=== PATIENT | female | born 1935 | race Caucasian/White ===

== ENCOUNTER 2023-07-10 15:29 | Emergency (ER) | payer MEDICARE, SELFPAY ==
[2023-07-10 15:33] VITALS: BMI 29.2
[2023-07-10 15:35] VITALS: BP 158/71
[2023-07-10 15:39] VITALS: BP 148/108
--- NOTE | 2023-07-10 15:43 | ED.GENMED ---
History of Present Illness
<Irene Britton PA-C - Last Filed: 07/10/23 19:08>
General
Chief Complaint: Musculo-Skeletal Complaint
Source: patient
Exam Limitations: none
Time Seen by Provider: 07/10/23 15:35
Nursing documentation reviewed up to this point in time: agreed with
Travel History
Have you had any contact with someone who has COVID-19?: No
Do you have any symptoms of coronavirus? Fever > 100 degrees, chills, cough, shortness of breath, sore throat, loss of taste or smell, muscle aches, or headache?: No
History of Present Illness
History of Present Illness:
This is a 88-year-old female with past medical history of CAD, hypertension, hyperlipidemia, hypothyroidism presenting to the emergency department today with left rib pain, left cheek pain, and neck pain following a fall today. Patient states that
she was leaving her prayer group when she tripped on the curb exam exiting the building and fell onto her left side. She denies abdominal pain, shoulder pain, dizziness, lightheadedness, syncopal episodes, headache, nausea, vomiting, midline chest
pain, shortness of breath. She states that her rib pain is significantly worse with any movement and when she breathes. She currently takes aspirin once daily but does not take any other blood thinning medications.
Past History
<Irene Britton PA-C - Last Filed: 07/10/23 19:08>
Past History
ED Past Medical History: HTN and Hypercholesterolemia
Social History
Tobacco: Non-smoker
Alcohol: Daily (2 glasses of wine each night which she had last night)
Personal:
Living: with family
Review of Systems
<Irene Britton PA-C - Last Filed: 07/10/23 19:08>
Review of Systems
All Other Systems: ROS reviewed and negative except as documented in HPI and ROS
Phy Exam
<Irene Britton PA-C - Last Filed: 07/10/23 19:08>
Physical Exam
Physical Exam:
General: Patient is well-appearing and in no acute distress
Skin: There is an abrasion the patient's left cheek. No other rashes or lesions, no areas of ecchymosis.
HEENT: Head--normocephalic, no palpable hematomas. Ears--no hemotympanum. PERRLA. EOMs intact. Eyes--left conjunctival injection.
Cardiac: Regular rate and rhythm, there is some significant tenderness palpation of the left lower external chest wall. No crepitus, no areas of ecchymosis.
Pulm: normal respiratory effort, equal lung sounds on both sides, no wheezes/rales/rhonchi
Abdomen: no abdominal tenderness to palpation
Musculoskeletal: Patient is seen spontaneously moving cervical spine, no bony tenderness palpation of the cervical spine. Some upper trapezius tenderness to palpation noted.
Neuro: AAO x3. CN II-XII intact.
Course
<Irene Britton PA-C - Last Filed: 07/10/23 19:08>
Orders/Labs/Results
Orders:
Orders
07/10/23 15:41
CT Cervical Spine W/o Iv Contr Urgent
Comment:
Reason For Exam: trauma, neck pain
CT Chest W/o Iv Contrast Urgent
Comment:
Reason For Exam: trauma, left rib pain
CT Facial Bones W/o Iv Contras Urgent
Comment:
Reason For Exam: left cheek pain following fall
CT Head W/o Iv Contrast Urgent
Comment:
Reason For Exam: trauma, fall
Oxycodone/Acetaminophen [Percocet 5/325] 1 tablet PO NOW STA
07/10/23 16:55
HYDROmorphone [Dilaudid] 0.5 mg IM NOW STA
Vital Signs
Initial and Last Documented VS:
Initial Vital Signs
Temp Pulse Resp BP Pulse Ox
98.1 F 75 16 158/71 99
07/10/23 15:35 07/10/23 15:35 07/10/23 15:35 07/10/23 15:35 07/10/23 15:35
Last Documented Vital Signs
Temp Pulse Resp BP Pulse Ox
98.1 F 63 19 148/67 97
07/10/23 15:35 07/10/23 17:00 07/10/23 17:00 07/10/23 17:00 07/10/23 17:00
<Jayme Shields, DO - Last Filed: 07/10/23 15:53>
Orders/Labs/Results
Orders:
Orders
07/10/23 15:41
CT Cervical Spine W/o Iv Contr Urgent
Comment:
Reason For Exam: trauma, neck pain
CT Chest W/o Iv Contrast Urgent
Comment:
Reason For Exam: trauma, left rib pain
CT Facial Bones W/o Iv Contras Urgent
Comment:
Reason For Exam: left cheek pain following fall
CT Head W/o Iv Contrast Urgent
Comment:
Reason For Exam: trauma, fall
Oxycodone/Acetaminophen [Percocet 5/325] 1 tablet PO NOW STA
07/10/23 16:55
HYDROmorphone [Dilaudid] 0.5 mg IM NOW STA
Vital Signs
Initial and Last Documented VS:
Initial Vital Signs
Temp Pulse Resp BP Pulse Ox
98.1 F 75 16 158/71 99
07/10/23 15:35 07/10/23 15:35 07/10/23 15:35 07/10/23 15:35 07/10/23 15:35
Last Documented Vital Signs
Temp Pulse Resp BP Pulse Ox
98.1 F 63 19 148/67 97
07/10/23 15:35 07/10/23 17:00 07/10/23 17:00 07/10/23 17:00 07/10/23 17:00
<Irene Britton PA-C - Last Filed: 07/10/23 19:08>
MDM/Problems Addressed
Differential Diagnosis Includes:
Differentials include left rib fracture, hemothorax, left zygomatic fracture
MDM/Problems Addressed:
rib pain
neck pain
cheek pain

Will start patient on 1 oral Percocet, and obtain CT imaging of the facial bones, neck, head, and chest
Chronic conditions affecting care: HTN and CAD
<CINDY Plummer Last Filed: 07/10/23 19:08>
*Pulse Oximetry
Patient hypoxic: no
*Critical Care Note
Total Time (30-74mins, 75-104mins- exclusive of procedures): Not Applicable
Data Reviewed
Review of Other/Old Records Reveals: Records (Reviewed hospital discharge summary from 07/25/2021)
Prescriptions/Medications Considered But Not Given:
N/A
Further Testing Considered But Not Given:
N/A
<CINDY Plummer Filed: 07/10/23 19:08>
Patient Management
Escalation/DeEscalation of care consider admission/obs:
This is a 88-year-old female who presents to the emergency department today following a fall after tripping on a curb. She currently admits to left cheek pain, left rib pain, and neck pain. On exam, she is significant tenderness palpation in the
left lower external chest wall her extraocular eye movements are intact, no hemotympanum. Her CT scans revealed an acute displaced left orbital floor fracture with maxillary sinusitis but no rib fractures, no acute intracranial pathology. While here
in the emergency department, her pain was controlled with one Percocet tablet and Dilaudid. I have provided patient with a few Percocet tablets to take at home for pain control as well as Augmentin. Patient is stable for discharge
<Irene Britton PA-C - Last Filed: 07/10/23 19:08>
Update Note
Update Note:
4:58 pm-- on reevaluation, patient does not have much relief with the percocet. Will give IM diluadid now
6:50 pm--I was not able to discuss antibiotic with patient prior to discharge. I called the contact number on file, patient's was here with her today. I called multiple times. I left a message regarding the instructions for the antibiotic.
ED Attending Note
<Irene Britton PA-C - Last Filed: 07/10/23 19:08>
-
Portions of this chart may have been created with voice recognition software.� Occasional wrong word or��sound alike� substitutions may have occurred due to the inherent limitations of voice recognition software.
<Jayme Shields DO - Last Filed: 07/10/23 15:53>
ED Attending Note
Patient seen and examined by attending physician: Yes
I performed the substantive portion of visit, reviewed & personally made and approve the management plan that is documented in note by myself or VETO.: Yes
ED Attending Note:
I have seen and evaluated the patient with a [id number] encounter. I have spoken to the advance practicer provider and involved in the medical history, the physical exam, medical decision making.
Evaluation and management service: agree unless noted differently below.
Results interpretation: agree unless noted differently below.
Focused HPI: 88-year-old female presenting with a trip and fall. She landed on the left side of her body. She complains of headache and left rib pain
Physical exam: Abrasion to left face. Mild tenderness to left rib. Lungs clear
Medical Decision Making: Will obtain CT head, facial bones, cervical spine and ribs
Discharge Plan
Departure
Patient Disposition: Home (Routine Discharge)
Date of Disposition: 07/10/23
Time of Disposition: 18:22
Patient with high blood pressure during this ER visit?: Yes
Condition: Good
Discharge Problem:
Orbital floor fracture
Instructions: Facial Fracture (DC)
Prescriptions:
New
oxycodone-acetaminophen [Percocet] 2.5-325 mg tablet
1 tab PO Q4H PRN (Reason: Pain) Qty: 10 0RF
amoxicillin-pot clavulanate [Augmentin] 500-125 mg tablet
1 tab PO Q12H 7 Days Qty: 14 0RF
No Action
levothyroxine 25 MCG tablet
25 mcg PO DAILY
erythromycin with ethanol 30 GM gel
1 applic topical DAILYPRN PRN (Reason: flares)
atorvastatin 80 MG tablet
80 mg PO HS
metoprolol tartrate 50 MG tablet
50 mg PO BID
escitalopram oxalate 10 MG tablet
10 mg PO DAILY
ezetimibe 10 MG tablet
10 mg PO HS
hydrochlorothiazide 12.5 MG tablet
12.5 mg PO DAILY
cholecalciferol (vitamin D3) 2,000 UNITS tablet
2,000 units PO DAILY
arlnywqgoe-bhaerddkbkjkw-xzum 1 EACH tablet
1 ea PO Q4HPRN PRN (Reason: migraines)
aspirin 325 MG tablet,delayed release (DR/EC)
325 mg PO DAILY
Referrals:
Savanah Herrera MD [Family Provider] -
Lalita Cesar DMD [Active] - Call in 1-3 days for appt
Activity Restrictions/Additional Instructions:
We have given you a referral for an oral/maxillofacial surgeon, Dr. Lalita Cesar. Please call tomorrow for an appointment.
We have sent a medication called Percocet to your pharmacy. You can take 1 tablet every 4 hours as needed for pain. This medication contains acetaminophen (Tylenol) so please do not take Tylenol while taking this medication.
Please return to the emergency department should you have worsening of your pain, develop the inability to see, have trouble with your vision, have shortness of breath, chest pain, or other concerning signs or symptoms.
Please follow up with your primary care provider.
Interventions
Interventions:
*Risk Screen - Suicide Last Done: 07/10/23 15:36
*General Assessment Last Done: 07/10/23 15:36
*Neglect/Abuse Screening Last Done: 07/10/23 15:36
ED- Fall Risk Assessment Last Done: 07/10/23 18:57
*ED COVID-19 Vaccine History Last Done: 07/10/23 15:36
*Nursing Disposition Last Done: 07/10/23 18:57
ED-Musculoskeletal Assessment Last Done: 07/10/23 15:57
Discharge Date and Time
Discharge Date/Time: 07/10/23 18:59
[2023-07-10] MEDS: PERCOCET 5/325 1 TABLET PO (15:52)
[2023-07-10 16:00] VITALS: BP 151/68
[2023-07-10 17:00] VITALS: BP 148/67
[2023-07-10] MEDS: DILAUDID 0.5 MG IM (17:46)
== END 2023-07-10 18:59 | disposition home or self-care (01) ==
LOC: EMR 15:29
PROVIDERS: EMERGENCY PHYSICIAN Student in an Organized Health Care Education/Training Program; FAMILY PHYSICIAN Internal Medicine
DX: S02.32XA Fracture of orbital floor, left side, initial encounter for closed fracture (principal); S00.81XA Abrasion of other part of head, initial encounter; W10.1XXA Fall (on)(from) sidewalk curb, initial encounter; Y92.89 Other specified places as the place of occurrence of the external cause; R07.81 Pleurodynia; M54.2 Cervicalgia; J01.00 Acute maxillary sinusitis, unspecified; I10 Essential (primary) hypertension; I25.10 Atherosclerotic heart disease of native coronary artery without angina pectoris; E78.00 Pure hypercholesterolemia, unspecified; M19.90 Unspecified osteoarthritis, unspecified site; H40.9 Unspecified glaucoma; L94.0 Localized scleroderma [morphea]; G43.909 Migraine, unspecified, not intractable, without status migrainosus; F41.9 Anxiety disorder, unspecified; E03.9 Hypothyroidism, unspecified; Z79.82 Long term (current) use of aspirin; Z95.1 Presence of aortocoronary bypass graft; Z96.651 Presence of right artificial knee joint; Z87.891 Personal history of nicotine dependence; Z85.828 Personal history of other malignant neoplasm of skin; Z98.0 Intestinal bypass and anastomosis status; Z88.2 Allergy status to sulfonamides; Z91.041 Radiographic dye allergy status
CPT/HCPCS: 99285; 96372; 70450; 70486; 71250; 72125

== ENCOUNTER 2023-07-13 11:09 | Emergency (ER) | payer MEDICARE, SELFPAY ==
[2023-07-13 11:16] VITALS: BP 138/68; BMI 29.8
[2023-07-13 11:21] VITALS: BP 127/51
[2023-07-13 12:00] VITALS: BP 130/64
--- NOTE | 2023-07-13 12:29 | ED.GENMED ---
History of Present Illness
General
Chief Complaint: Generalized Pain
Source: patient
Exam Limitations: none
Time Seen by Provider: 07/13/23 12:28
Nursing documentation reviewed up to this point in time: agreed with
Travel History
Have you had any contact with someone who has COVID-19?: No
Do you have any symptoms of coronavirus? Fever > 100 degrees, chills, cough, shortness of breath, sore throat, loss of taste or smell, muscle aches, or headache?: No
History of Present Illness
History of Present Illness:
88-year-old female presents from home. History of migraines, CAD, CABG quadruple bypass 1998, HTN, HLD, diverticulitis, colon resection 2006, RAMANA, hypothyroid presents from home stating she has left rib pain, getting worse since fall 2 days ago
when she was evaluated here and had neg fractures on Chest CT. She fell tripping on steps at the [employer], dx here with left infraorbital fx,neg head CT. discharged with Percocet 2.5-325 x 10 tabs which she has been taking with not much relief . also
rx for Augmentin.
at bedside states he is having trouble taking care of her as if he tries to help her out of bed 'she screams.'
Pt does NOT want to go to rehab.
Pt denies headache, SOB, CP, Abd pain, feeling weak or dizzy. She states she is simply here due to the left rib pain. states she only has one Eucet (Oxycodone-Acetaminophen 2.5-325)
Past History
Past History
ED Past Medical History: CAD, HTN, Hypercholesterolemia, Hypothyroidism and Other (Diverticulitis)
Social History
Tobacco: Former smoker
Alcohol: Daily (2 glasses of wine each night which she had last night)
Personal:
Living: with family
Review of Systems
Review of Systems
Allergies reviewed?: Yes
All Other Systems: ROS reviewed and negative except as documented in HPI and ROS
Constitutional: Denies fever
Respiratory: Denies cough, hemoptysis or trouble breathing
Cardiac: Denies chest pain, diaphoresis, palpitations or syncope
ABD/GI: Denies abdominal pain, nausea, vomiting, diarrhea, constipated or anorexia
: Denies dysuria, difficulty voiding or urgency
Musculoskeletal: Reports other (Left rib pain from fall 2 days ago)
Skin: Reports other (Old ecchymosis around left eye)
Neurological: Reports headache (Top of her head); Denies dizzy, weakness or numbness
Phy Exam
Physical Exam
Physical Exam:
GENERAL: No acute distress. A&Ox3.
CONSTITUTIONAL: Afebrile.
EYES: PERRL, conjunctivae normal, EOMs intact
Neck: Supple
ENMT: moist mucus membranes, Pharynx nl
RESPIRATORY: Regular respirations, nonlabored, lungs clear.
CARDIOVASCULAR: Regular rate and rhythm, no murmurs, no rubs.
GI: Soft, nontender, normal BS
MUSCULOSKELETAL: Tender left mid anterior-lateral ribs. No edema. Well perfused.
SKIN: Warm, dry, pink. Left periorbital ecchymosis in various stages of healing
PSYCH: Normal mood and affect. Well kept, interactive and appropriate
NEUROLOGIC: Awake, alert and oriented. No focal neurological deficits
Course
Orders/Labs/Results
Orders:
Orders
07/13/23 11:15
EKG [Electrocardiogram (*1)] Urgent
Reason for Study: Fatigue / Weakness
EKG- Treatment ONCE
07/13/23 12:49
Oxycodone/Acetaminophen [Percocet 5/325] 1 tablet PO NOW STA
Nursing to Place Non Medication Order As Directed
Physician Order: Rib belt
Above order entered?: Yes
07/13/23 12:[address] Non Medication Order As Directed
Physician Order: Incentive spirometer
Above order entered?: Yes
Vital Signs
Initial and Last Documented VS:
Initial Vital Signs
Temp Pulse Resp BP Pulse Ox
98.2 F 57 18 138/68 93
07/13/23 11:16 07/13/23 11:16 07/13/23 11:16 07/13/23 11:16 07/13/23 11:16
Last Documented Vital Signs
Temp Pulse Resp BP Pulse Ox
98.2 F 58 21 137/54 89
07/13/23 11:16 07/13/23 13:45 07/13/23 13:45 07/13/23 13:00 07/13/23 12:30
MDM/Problems Addressed
MDM/Problems Addressed:
88-year-old female presents from home. History of migraines, CAD, CABG quadruple bypass 1998, HTN, HLD, diverticulitis, colon resection 2006, RAMANA, hypothyroid presents from home stating she has left rib pain, getting worse since fall 2 days ago
when she was evaluated here and had neg fractures on Chest CT. She fell tripping on steps at the [employer], dx here with left infraorbital fx,neg head CT. discharged with Percocet 2.5-325 x 10 tabs which she has been taking with not much relief . also
rx for Augmentin filled and is taking
at bedside states he is having trouble taking care of her as if he tries to help her out of bed 'she screams.'
Pt does NOT want to go to rehab.
Pt denies headache, SOB, CP, Abd pain, feeling weak or dizzy. She states she is simply here due to the left rib pain. states she only has one Eucet (Oxycodone-Acetaminophen 2.5-325)
EKG: Sinus bradycardia, similar to last
Afebrile, NAD.
07/13/2023 1253 PM
Patient is a nurse. She states the main concern is the pain in her ribs. Her 's main concern is that he cannot help her out of bed when she does go to the bathroom
Plan: You have a Percocet 5/325 here now. Apply rib belt. Give incentive spirometer, it is not unusual that her pain is worse a day or 2 or even 3 after an injury. I have explained this to patient and . Explained she has to move around or
she will be more stiff and sore.
Physical exam is unremarkable, lungs CTA, pulse ox 96% room air
07/13/2023 1406 PM
After Percocet, Rib belt applied by this examiner and patient stated much relief. She is able to get out of bed on her own and sit in a chair and get back up again independently
and pt comfortable going home. Will f/u with PCP early next week.
*EKG
EKG Intrepretation Date: 07/13/23
Interpretation: abnormal
Rate: bradycardiac
Rhythm: sinus
[place]: normal axis
Interval: normal interval
QRS Pattern: normal QRS
Ischemia: no ischemia
*Critical Care Note
Total Time (30-74mins, 75-104mins- exclusive of procedures): Not Applicable
ED Attending Note
-
Portions of this chart may have been created with voice recognition software.� Occasional wrong word or��sound alike� substitutions may have occurred due to the inherent limitations of voice recognition software.
Discharge Plan
Departure
Patient Disposition: Home (Routine Discharge)
Date of Disposition: 07/13/23
Time of Disposition: 14:08
Patient with high blood pressure during this ER visit?: No
Condition: Good
Discharge Problem:
Rib pain on left side, Contusion of rib on left side
Instructions: Rib Fracture or Bruised Rib ED
Prescriptions:
No Action
levothyroxine 25 MCG tablet
25 mcg PO DAILY
erythromycin with ethanol 30 GM gel
1 applic topical DAILYPRN PRN (Reason: flares)
atorvastatin 80 MG tablet
80 mg PO HS
metoprolol tartrate 50 MG tablet
50 mg PO BID
escitalopram oxalate 10 MG tablet
10 mg PO DAILY
ezetimibe 10 MG tablet
10 mg PO HS
hydrochlorothiazide 12.5 MG tablet
12.5 mg PO DAILY
cholecalciferol (vitamin D3) 2,000 UNITS tablet
2,000 units PO DAILY
svtfkhbfnw-vspdmzqyelgqy-srwb 1 EACH tablet
1 ea PO Q4HPRN PRN (Reason: migraines)
aspirin 325 MG tablet,delayed release (DR/EC)
325 mg PO DAILY
oxycodone-acetaminophen [Percocet] 2.5-325 mg tablet
1 tab PO Q4H PRN (Reason: Pain) Qty: 10 0RF
amoxicillin-pot clavulanate [Augmentin] 500-125 mg tablet
1 tab PO Q12H 7 Days Qty: 14 0RF
Referrals:
Savanah Herrera MD [Family Provider] - Follow up in 5-7 days
Activity Restrictions/Additional Instructions:
As we discussed, Tylenol 1000 mg up to 3 times a day as needed for pain.
Wear the rib belt until you are comfortable without.
Use the incentive spirometer 10 breaths every hour while awake for the next week.
Move around is much as you comfortably can, if you stay sedentary you will get more stiff and sore.
Interventions
Interventions:
*Risk Screen - Suicide Last Done: 07/13/23 11:20
*General Assessment Last Done: 07/13/23 11:18
*Neglect/Abuse Screening Last Done: 07/13/23 14:37
ED- Fall Risk Assessment Last Done: 07/13/23 11:20
*ED COVID-19 Vaccine History Last Done: 07/13/23 11:17
*Nursing Disposition Last Done: 07/13/23 14:37
Discharge Date and Time
Discharge Date/Time: 07/13/23 14:41
[2023-07-13 13:00] VITALS: BP 137/54
[2023-07-13] MEDS: PERCOCET 5/325 1 TABLET PO (13:24)
== END 2023-07-13 14:41 | disposition home or self-care (01) ==
LOC: EMR 11:09
PROVIDERS: EMERGENCY PHYSICIAN Student in an Organized Health Care Education/Training Program; FAMILY PHYSICIAN Internal Medicine
DX: S20.212A Contusion of left front wall of thorax, initial encounter (principal); W10.8XXA Fall (on) (from) other stairs and steps, initial encounter; I10 Essential (primary) hypertension; R07.81 Pleurodynia; Z87.891 Personal history of nicotine dependence; Z95.1 Presence of aortocoronary bypass graft
CPT/HCPCS: 99283; 93005

== ENCOUNTER → 2023-11-07 12:46 | Outpatient (REF) | payer MEDICARE, SELFPAY ==
[2023-11-07 16:54] LABS: % Basophils 0.4 % (0-2); % Eosinophils 1.5 % (0-6); % Immature Granulocytes 0.1 % (0-0.5); % Lymphocytes 14.9 % (20.5-51.1); % Monocytes 5.8 % (1.7-9.3); % Neutrophils 77.3 % (42.2-75.2); Absolute Eosinophils 0.1 10^3/uL (0-0.7); Absolute Lymphocytes 1.1 10^3/uL (1.2-3.4); Absolute Monocytes 0.4 10^3/uL (0.1-0.6); Absolute Neutrophils 5.6 10^3/uL (1.4-6.5); Hemoglobin 12.8 g/dL (12.0-16.0); Mean Corp Hgb Conc. 34.6 g/dL (33.0-37.0); Mean Corpuscular Hgb 34.3 pg (27.0-31.0); Mean Corpuscular Volume 99.2 fL (81.0-99.0); Mean Platelet Volume 13.4 fL (7.4-10.4); Nucleated Red Blood Cells % 0 %; Platelet Count 146 10^3/uL (130-400); Red Blood Cell Count 3.73 10^6/uL (4.20-5.40); Red Cell Dist. Width 12.2 % (11.5-14.5); White Blood Cell Count 7.3 10^3/uL (4.8-10.8)
[2023-11-07 17:20] LABS: ALT (SGPT) 13 U/L (0-35); AST (SGOT) 23 U/L (14-36); Albumin 4.2 g/dl (3.5-5.0); Alkaline Phosphatase 63 U/L (38-126); Blood Urea Nitrogen 22 mg/dl (7-17); Calcium 10.1 mg/dl (8.4-10.2); Carbon Dioxide 27 mmol/L (22-30); Chloride 101 mmol/L (98-107); Glucose 102 mg/dl (70-99); HDL Cholesterol 52 mg/dl; LDL Cholesterol, Calculated 61 mg/dl; Potassium 4.1 mmol/L (3.5-5.1); Sodium 137 mmol/L (135-145); Total Bilirubin 1.3 mg/dl (0.2-1.3); Total Cholesterol 141 mg/dl (50-199); Total Protein 6.9 g/dl (6.3-8.2); Triglyceride 142 mg/dl (10-149); Very Low Density Lipoprotein 28 mg/dl (0-30); eGFR 40.05
[2023-11-07 17:36] LABS: Free T3 3.02 pg/ml (2.77-5.27); Free T4 1.21 ng/dl (0.78-2.19)
[2023-11-07 17:50] LABS: TSH 1.89 uIU/ml (0.47-4.68)
[2023-11-07 18:09] LABS: Vitamin B12 771 pg/ml (239-931)
[2023-11-08 13:14] LABS: Glycohemoglobin (HgbA1c) 5.5 % (4.0-5.6)
== END ==
LOC: HWLAB 12:46
PROVIDERS: ATTENDING PHYSICIAN Internal Medicine
DX: E03.9 Hypothyroidism, unspecified (principal); R73.01 Impaired fasting glucose; E53.8 Deficiency of other specified B group vitamins; E78.5 Hyperlipidemia, unspecified
CPT/HCPCS: 36415; 80053; 80061; 82607; 83036; 84439; 84443; 84481; 85025

== ENCOUNTER → 2024-01-01 15:33 | Outpatient (REF) | payer MEDICARE, SELFPAY | LOC: HWRAD 15:33 | PROVIDERS: ATTENDING PHYSICIAN Internal Medicine | DX: Z11.1 Encounter for screening for respiratory tuberculosis (principal) | CPT/HCPCS: 71046 ==